=== PATIENT | female | born 1985 | race African-American/Black ===

== ENCOUNTER 2018-10-23 22:55 | Emergency (ER) | payer OTHER ==
[~2018-10-23] VITALS: Ht 160 cm; Wt 68.0 kg
[~2018-10-23 22:55] MED LIST: IRON PILLS; SENN-72 PO
[2018-10-23 23:04] VITALS: BP 111/75
--- NOTE | 2018-10-23 23:08 | NUR ---
PT PROVIDED URINE SPECIMEN, AMBULATORY TO [facility].
--- NOTE | 2018-10-24 00:08 | NUR ---
PT TO BED 8 AT THIS TIME
--- NOTE | 2018-10-24 00:10 | NUR ---
PT PRESENTED ER WITH C/O DIZZINESS, LIGHT HEADED, FEELING LIKE GOING TO PASS OUT X 2 DAYS. PT STATED SHE IS CONGESTED AND HAS SINUS FLARE UP. PT DENIES, N/V/D AND FEVER, MOSER. PT IS A/O X 4.SKIN IS PINK/WARM/DRY. PT PAIN LEVEL IS 0/10 AT THIS TIME. VSS; PATIENT POSITIONED FOR COMFORT; HOB ELEVATED; BEDRAILS UP X2; BED DOWN. ER MD MADE AWARE OF PT STATUS.
[2018-10-24] MEDS ORDERED: NACL 0.9% 1,000 ML IV ONE (00:50)
[2018-10-24 01:05] LABS: BASOPHILS # (AUTO) 0.1 K/uL (0.00-0.22); BASOPHILS % (AUTO) 0.7 % (0.0-2.0); EOSINOPHILS # (AUTO) 0.6 K/uL (0-0.4); EOSINOPHILS % (AUTO) 7.9 % (0.0-4.0); HEMATOCRIT 36.7 % (36-48); HEMOGLOBIN 11.3 g/dL (12.0-16.0); LYMPHOCYTES # (AUTO) 2.7 K/uL (2.5-16.5); LYMPHOCYTES % (AUTO) 34.9 % (20.5-51.1); MEAN CORPUSCULAR HEMOGLOBIN 24 pg (27-31); MEAN CORPUSCULAR HGB CONC 31 g/dL (33-37); MEAN CORPUSCULAR VOLUME 76.8 fL (80-94); MONOCYTES # (AUTO) 0.5 K/uL (0.8-1.0); NEUTROPHILS # (AUTO) 3.8 K/uL (1.8-7.7); NEUTROPHILS % (AUTO) 49.5 % (42.2-75.2); PLATELET COUNT (AUTO) 220 K/uL (140-450); RED BLOOD CELL COUNT(AUTO) 4.78 MIL/uL (4.20-5.40); RED CELL DISTRIBUTION WIDTH 16.7 % (11.6-13.7); WHITE BLOOD COUNT (AUTO) 7.6 K/uL (4.8-10.8)
[2018-10-24 01:18] LABS: ANION GAP 10.9 (8-16); CARBON DIOXIDE 29.1 mmol/L (21-32); CREATININE 0.7 mg/dL (0.6-1.3)
[2018-10-24 01:32] LABS: CREATINE KINASE MB 0.1 ng/mL (0-3.6)
[2018-10-24 01:34] LABS: ALBUMIN 3.7 g/dL (3.4-5.0); FREE T4 (FREE THYROXINE) 0.91 ng/dL (0.76-1.46); THYROID STIMULATING HORMONE 1.97 uIU/mL (0.34-3.74); TOTAL BILIRUBIN 0.3 mg/dL (0.0-1.0)
[2018-10-24 01:50] VITALS: BP 128/78
--- NOTE | 2018-10-24 01:50 | NUR ---
Patient discharged with v/s stable. Written and verbal after care instructions given and explained. Patient verbalized understanding. Ambulatory with steady gait. All questions addressed prior to discharge. Advised to follow up with PMD.
== END 2018-10-24 01:50 | disposition home or self-care (01) ==
LOC: MED 22:55
DX: R53.1 Weakness (principal); R42 Dizziness and giddiness; J45.909 Unspecified asthma, uncomplicated; I48.91 Unspecified atrial fibrillation; Z98.890 Other specified postprocedural states; Z79.899 Other long term (current) drug therapy
CPT/HCPCS: 36415; 71045; 80053; 81002; 81025; 82550; 82553; 83690; 84439; 84443; 84484; 85025; 96360; 99284; J7030; Q0092